=== PATIENT | female | born 1990 | race Caucasian/White ===

== ENCOUNTER → 2017-06-24 | Outpatient (CLI) | payer BC ==
[~2017-06-24] MED LIST: ZITHROMAX Z PA250 MG PO
[2017-06-24 16:52] LABS: B-hCG (QUALITATIVE) POSITIVE (NEGATIVE)
== END | disposition home or self-care (01) ==
LOC: LAB 15:44
DX: Z34.90 Encounter for supervision of normal pregnancy, unspecified, unspecified trimester (principal); Z3A.00 Weeks of gestation of pregnancy not specified